=== PATIENT | female | born 1980 | race Caucasian/White ===

== ENCOUNTER 2020-12-31 15:49 | Inpatient (IN) | payer MEDICAID ==
[~2020-12-31 15:49] MED LIST: Sodium Chloride 0.9% 1,000 ML ONE
[2020-12-31] MEDS ORDERED: Acetaminophen 325 MG Tab PO ONE (16:06)
[2020-12-31] MEDS ORDERED: Sodium Chloride 0.9% 1,000 ML IV ONE (16:06)
--- NOTE | 2020-12-31 16:06 | EDM.PDOC ---
ED HPI GENERAL MEDICAL PROBLEM - General Chief Complaint: General Stated Complaint: Cough, Fatigue, SOB Time Seen by Provider: 12/31/20 15:53 Source of Information: Reports: Patient History Limitations: Reports: No Limitations - History of Present Illness INITIAL COMMENTS - FREE TEXT/NARRATIVE: Heather is a 40 year old female who presents per EMS with complaints of shortness of breath, cough, sinus congestion, sore throat, chest and back discomfort, body aches. Has been sick for a few days. Relates tried to be seen at a different facility but was turned away as only has [place] Medicaid. Has been driving for the last 2 hours and heading back to [place]. States were in [place] to "build bleachers". Were pulled over by the police for undisclosed reasons and advised them she was having all these symptoms. She admits she was likely exposed to covid with her roommates, has not had the vaccine. History of anxiety/depression, hypertension. Onset: Gradual Duration: Day(s):, Getting Worse Location: Reports: Head, Chest, Back, Generalized Quality: Reports: Ache Severity: Moderate Associated Symptoms: Reports: Chest Pain, Cough, Fever/Chills, Headaches, Loss of Appetite, Malaise, Nausea/Vomiting, Shortness of Breath, Weakness. Denies: Confusion back pain Pain Score (Numeric/FACES): 10 - Related Data Allergies Allergy/AdvReac Type Severity Reaction Status Date / Time No Known Allergies Allergy Verified 12/31/20 15:51 Home Meds: Home Meds Citalopram Hydrobromide [Celexa] 20 mg PO DAILY 12/31/20 [History] Metoprolol Tartrate 100 mg PO BID 12/31/20 [History] Pantoprazole Sodium [Protonix] 20 mg PO DAILY 12/31/20 [History] cloNIDine [Catapres] 0.3 mg PO DAILY 12/31/20 [History] lisinopriL [Lisinopril] 20 mg PO BID 12/31/20 [History] Past Medical History Cardiovascular History: Reports: Hypertension Gastrointestinal History: Reports: GERD Social & Family History - Family History Family Medical History: No Pertinent Family History - Tobacco Use Tobacco Use Status *Q: Current Every Day Tobacco User Years of Tobacco use: 10 Packs/Tins Daily: 0.5 - Caffeine Use Caffeine Use: Reports: None - Recreational Drug Use Recreational Drug Use: No ED ROS GENERAL - Review of Systems Review Of Systems: See Below Constitutional: Reports: Fever, Chills, Malaise, Weakness, Fatigue, Decreased Appetite HEENT: Reports: Ear Pain, Rhinitis, Sinus Problem, Throat Pain Respiratory: Reports: Shortness of Breath, Cough Cardiovascular: Reports: Chest Pain, Lightheadedness. Denies: Edema Endocrine: Reports: Fatigue GI/Abdominal: Reports: Decreased Appetite, Nausea, Vomiting. Denies: Abdominal Pain, Constipation, Diarrhea : Reports: Other (decreased frequency of voiding) Musculoskeletal: Reports: No Symptoms Skin: Reports: No Symptoms Neurological: Reports: Headache, Weakness ED EXAM, GENERAL - Physical Exam Exam: See Below Exam Limited By: No Limitations General Appearance: Alert, WD/WN, Mild Distress Ears: Normal External Exam, Normal TMs Nose: Normal Inspection, Normal Mucosa, Nasal Drainage Throat/Mouth: Other (mucous membranes dry, tongue dry, posterior pharynx is red) Head: Normocephalic Neck: Normal Inspection, Supple, Non-Tender Respiratory/Chest: Decreased Breath Sounds, Rhonchi Cardiovascular: Regular Rate, Rhythm GI/Abdominal: Normal Bowel Sounds, Soft, Non-Tender Extremities: Normal Inspection, No Pedal Edema Neurological: Alert, Oriented Skin Exam: Warm, Dry Course - Vital Signs Last Recorded V/S: Last Vital Signs Temp 102.7 F H 12/31/20 15:54 Pulse 89 12/31/20 15:54 Resp 18 12/31/20 15:54 BP 102/57 L 12/31/20 15:54 Pulse Ox 98 12/31/20 15:54 - Orders/Labs/Meds Orders: Active Orders 24 hr Category Date Time Status Abdomen Pelvis wo Cont [CT] Stat Exams 12/31/20 17:08 Taken Chest 2V [CR] Stat Exams 12/31/20 16:00 Taken Chest wo Cont [CT] Stat Exams 12/31/20 17:08 Taken CULTURE URINE [RM] Stat Lab 12/31/20 16:00 Received Labs: Laboratory Tests 12/31/20 12/31/20 12/31/20 Range/Units 16:00 16:00 16:00 WBC 19.7 H (4.0-11.0) 10^3/uL RBC 3.30 L (4.00-5.50) x10^6/uL Hgb 9.6 L (12.0-16.0) g/dL Hct 29.0 L (37.0-47.0) % MCV 87.9 (83.0-97.0) fL MCH 29.1 (27.0-32.0) pg MCHC 33.1 (32.0-36.0) g/dL RDW Coeff of Linda 13.0 (11.0-15.0) % Plt Count 289 (150-400) 10^3/uL Add Manual Diff Yes Neutrophils % (Manual) 83 (35-85) % Band Neutrophils % 10 H (0-5) % Lymphocytes % (Manual) 2 L (21-55) % Monocytes % (Manual) 4 (2-12) % Eosinophils % (Manual) 1 (0-5) % D-Dimer, Quantitative (0.00-0.50) Sodium (136-145) mEq/L Potassium (3.5-5.0) mEq/L Chloride (98-106) mEq/L Carbon Dioxide (21-32) mmol/L BUN (7-18) mg/dL Creatinine (0.6-1.0) mg/dL Est Cr Clr Drug Dosing Estimated GFR (MDRD) (>=60) mL/min Glucose (75-99) mg/dL Lactic Acid (0.4-2.0) mmol/L Calcium (8.4-10.1) mg/dL Magnesium (1.8-2.4) mg/dL Total Bilirubin (0.0-1.0) mg/dL AST (15-37) U/L ALT (12-78) U/L Alkaline Phosphatase (46-116) U/L Troponin I High Sens (<=51) pg/mL C-Reactive Protein (0.2-0.8) mg/dL NT-Pro-B Natriuret Pep (0-1000) pg/mL Total Protein (6.4-8.2) g/dL Albumin (3.4-5.0) g/dL Urine Color Dark yellow (YELLOW) Urine Appearance Slightly cloudy (CLEAR) Urine pH 5.5 (4.5-8.0) Ur Specific [place] >= 1.030 H (1.003-1.020) Urine Protein >=300 H (NEGATIVE) mg/dL Urine Glucose (UA) Negative (NEGATIVE) mg/dL Urine Ketones Negative (NEGATIVE) mg/dL Urine Occult Blood Moderate H (NEGATIVE) Urine Nitrite Negative (NEGATIVE) Urine Bilirubin Small H (NEGATIVE) Urine Urobilinogen 1.0 (0.2-1.0) EU/dL Ur Leukocyte Esterase Small H (NEGATIVE) Urine RBC 5-10 H (0-5) /HPF Urine WBC >100 H (0-5) /HPF Urine WBC Clumps Few H (NOT SEEN) /HPF Ur Epithelial Cells Few H (NOT SEEN) /HPF Urine Bacteria Moderate H (NOT SEEN) /HPF SARS CoV-2 RNA Rapid JAIMEE Negative (NEGATIVE) 12/31/20 12/31/20 12/31/20 Range/Units 16:00 16:00 16:20 WBC (4.0-11.0) 10^3/uL RBC (4.00-5.50) x10^6/uL Hgb (12.0-16.0) g/dL Hct (37.0-47.0) % MCV (83.0-97.0) fL MCH (27.0-32.0) pg MCHC (32.0-36.0) g/dL RDW Coeff of Linda (11.0-15.0) % Plt Count (150-400) 10^3/uL Add Manual Diff Neutrophils % (Manual) (35-85) % Band Neutrophils % (0-5) % Lymphocytes % (Manual) (21-55) % Monocytes % (Manual) (2-12) % Eosinophils % (Manual) (0-5) % D-Dimer, Quantitative 2.22 H (0.00-0.50) Sodium 130 L (136-145) mEq/L Potassium 3.9 (3.5-5.0) mEq/L Chloride 94 L (98-106) mEq/L Carbon Dioxide 27 (21-32) mmol/L BUN 21 H (7-18) mg/dL Creatinine 2.3 H (0.6-1.0) mg/dL Est Cr Clr Drug Dosing TNP Estimated GFR (MDRD) 23 L (>=60) mL/min Glucose 93 (75-99) mg/dL Lactic Acid 1.0 (0.4-2.0) mmol/L Calcium 8.2 L (8.4-10.1) mg/dL Magnesium 1.6 L (1.8-2.4) mg/dL Total Bilirubin 0.7 (0.0-1.0) mg/dL AST 10 L (15-37) U/L ALT 12 (12-78) U/L Alkaline Phosphatase 81 (46-116) U/L Troponin I High Sens 6.0 (<=51) pg/mL C-Reactive Protein 37.7 H (0.2-0.8) mg/dL NT-Pro-B Natriuret Pep 898 (0-1000) pg/mL Total Protein 7.1 (6.4-8.2) g/dL Albumin 3.0 L (3.4-5.0) g/dL Urine Color (YELLOW) Urine Appearance (CLEAR) Urine pH (4.5-8.0) Ur Specific [place] (1.003-1.020) Urine Protein (NEGATIVE) mg/dL Urine Glucose (UA) (NEGATIVE) mg/dL Urine Ketones (NEGATIVE) mg/dL Urine Occult Blood (NEGATIVE) Urine Nitrite (NEGATIVE) Urine Bilirubin (NEGATIVE) Urine Urobilinogen (0.2-1.0) EU/dL Ur Leukocyte Esterase (NEGATIVE) Urine RBC (0-5) /HPF Urine WBC (0-5) /HPF Urine WBC Clumps (NOT SEEN) /HPF Ur Epithelial Cells (NOT SEEN) /HPF Urine Bacteria (NOT SEEN) /HPF SARS CoV-2 RNA Rapid JAIMEE (NEGATIVE) Meds: Medications Discontinued Medications Generic Name Dose Route Start Last Admin Trade Name Freq PRN Reason Stop Dose Admin Acetaminophen 650 mg 12/31/20 16:06 12/31/20 16:08 Acetaminophen 325 Mg Tab PO 12/31/20 16:07 650 mg NOW ONE Administration Sodium Chloride Confirm 12/31/20 15:33 12/31/20 16:08 Normal Saline Administered 12/31/20 15:34 Not Given Dose 1,000 mls @ as directed .ROUTE .STK-MED ONE Sodium Chloride 1,000 mls @ 999 mls/hr 12/31/20 16:06 12/31/20 16:08 Normal Saline IV 12/31/20 17:06 999 mls/hr .BOLUS ONE Administration Iopamidol 100 ml 12/31/20 16:52 12/31/20 17:42 Iopamidol 755 Mg/Ml 100 Ml Bottle IVPUSH 12/31/20 16:53 Not Given ONETIME ONE - Re-Assessments/Exams Free Text/Narrative Re-Assessment/Exam: 12/31/20 17:47 Lab results all received, finally able to collect UA. WBC high, CRP high, crea tinine high. D-Dimer is high but unable to perform CTA. Scans of chest, abdomen and pelvis were done to find source of infection. UA is positive. IV fluids have been infusing, will continue. Blood cultures obtained. Arresting office also here with patient. Did find drug paraphernalia in her vehicle. Will admit to inpatient for UTI with sepsis. Departure - Departure Time of Disposition: 17:50 Disposition: Admitted As Inpatient 64 Condition: Fair Clinical Impression: UTI (urinary tract infection), Sepsis - Discharge Information *PRESCRIPTION DRUG MONITORING PROGRAM REVIEWED*: No *COPY OF PRESCRIPTION DRUG MONITORING REPORT IN PATIENT BENI: No Sepsis Event Note (ED) - Evaluation Sepsis Screening Result: No Definite Risk - Focused Exam Vital Signs: Vital Signs Temp Pulse Resp BP Pulse Ox 12/31/20 15:54 102.7 F H 89 18 102/57 L 98 - Problem List & Annotations (1) Sepsis SNOMED Code(s): 38773600 Code(s): A41.9 - SEPSIS, UNSPECIFIED ORGANISM Status: Acute Priority: High Current Visit: Yes Qualifiers: Severe sepsis acute organ dysfunction type: acute renal failure Acute renal failure type: with acute tubular necrosis (2) UTI (urinary tract infection) SNOMED Code(s): 42676299 Code(s): N39.0 - URINARY TRACT INFECTION, SITE NOT SPECIFIED Status: Acute Priority: High Current Visit: Yes Qualifiers: Urinary tract infection type: acute cystitis Hematuria presence: with hematuria Qualified Code(s): N30.01 - Acute cystitis with hematuria (3) Hypotension SNOMED Code(s): 42356937 Code(s): I95.9 - HYPOTENSION, UNSPECIFIED Status: Acute Priority: High Current Visit: Yes Qualifiers: Hypotension type: hypotension due to hypovolemia Qualified Code(s): I95.89 - Other hypotension; E86.1 - Hypovolemia (4) RANJEET (acute kidney injury) SNOMED Code(s): 25414653, 39158615 Code(s): N17.9 - ACUTE KIDNEY FAILURE, UNSPECIFIED Status: Acute Priority: High Current Visit: Yes - Problem List Review Problem List Initiated/Reviewed/Updated: Yes - My Orders Last 24 Hours: My Active Orders 12/31/20 16:00 Chest 2V [CR] Stat CULTURE URINE [RM] Stat 12/31/20 17:08 Abdomen Pelvis wo Cont [CT] Stat Chest wo Cont [CT] Stat - Assessment/Plan Admission H&P: Please use this note as an admission H&P Last 24 Hours: My Active Orders 12/31/20 16:00 Chest 2V [CR] Stat CULTURE URINE [RM] Stat 12/31/20 17:08 Abdomen Pelvis wo Cont [CT] Stat Chest wo Cont [CT] Stat Assessment:: 1. UTI 2. Sepsis 3. RANJEET 4. Hypotension Plan: Admit to inpatient. Continue IV fluids. IV antibiotics. Control temp. Watch temp and treat accordingly.
[2020-12-31 16:30] LABS: CHLORIDE,CL 94 mEq/L (98-106); SODIUM,NA 130 mEq/L (136-145)
[2020-12-31] MEDS ORDERED: Iopamidol 755 Mg/ML 100 ML Bottle IVPUSH ONE (16:52)
[2020-12-31 17:45] LABS: METHAMPHETAMINES,URINE POSITIVE (NEGATIVE)
[2020-12-31 17:46] LABS: AMPHETAMINES,URINE POSITIVE (NEGATIVE); BARBITURATES,URINE NEGATIVE (NEGATIVE); BENZODIAZEPINE,URINE NEGATIVE (NEGATIVE); MDMA (ECSTASY), URINE NEGATIVE (NEGATIVE); METHADONE,URINE NEGATIVE (NEGATIVE); OPIATES,URINE NEGATIVE (NEGATIVE); OXYCODONE,URINE NEGATIVE (NEGATIVE); PHENCYCLIDINE,URINE NEGATIVE (NEGATIVE); TCA,URINE POSITIVE (NEGATIVE)
[2020-12-31] MEDS ORDERED: cefTRIAXone 2 GM Vial IVPUSH ONE (17:55)
[2020-12-31] MEDS ORDERED: Ondansetron 4 MG/2 ML SDV IV PRN (18:11)
[2020-12-31] MEDS ORDERED: Ondansetron 4 MG Tab.DIS PO PRN (18:11)
[2020-12-31] MEDS ORDERED: Sodium Chloride 0.9% 1,000 ML IV SCH ×2 (18:11→20:00)
[2020-12-31] MEDS ORDERED: Temazepam 15 MG Cap PO PRN (18:11)
[2020-12-31] MEDS ORDERED: Acetaminophen 325 MG Tab PO PRN (18:11)
[2020-12-31] MEDS ORDERED: Ibuprofen 200 MG Tab PO PRN (18:11)
[2020-12-31] MEDS: Doxycycline 100 MG Tab PO SCH (19:56)
--- NOTE | 2020-12-31 20:08 | PCM.SN.2 ---
- Free Text/Narrative Note: Patient is resting comfortably. Now eating, drinking fluids well. Concerned with blood pressure as remains hypotensive despite one liter bolus. [facility] Dr[facility] [place]. [place] antibiotics, treatment plan appropriate. Suggested additional liter bolus. Advised nurses of such. Will continue with Rocephin and Doxycycline, IV fluids. Continue to monitor. Time Documentation
[2020-12-31] MEDS: Sodium Chloride 0.9% 1,000 ML IV SCH (21:30)
[2021-01-01] MEDS: LORazepam 2 MG/ML Syringe IVPUSH PRN ×2 (01:59→10:32)
[2021-01-01] MEDS: Sodium Chloride 0.9% 1,000 ML IV SCH (05:35)
[2021-01-01] MEDS: Doxycycline 100 MG Tab PO SCH (07:40)
[2021-01-01] MEDS ORDERED: Pantoprazole 40 MG Tab.CR PO SCH (08:00)
[2021-01-01] MEDS ORDERED: Citalopram 10 MG Tab PO SCH (08:00)
[2021-01-01] MEDS ORDERED: Levofloxacin/Dextrose 5%-Water 500 MG in Premix Bag 1 BAG IV ONE (09:17)
[2021-01-01] MEDS ORDERED: Enoxaparin 30 MG/0.3 ML Syringe SUBCUT SCH (12:00)
--- NOTE | 2021-01-01 14:28 | PCM.DCSUM1 ---
Discharge Summary - Hospital Course Free Text/Narrative:: Heather is a 40 year old female who presented to ER after was pulled over by the police and patient was on scene complaining of abdominal pain, body aches, chest congestion, headache, fatigue and fever. States had tried to be seen in [facility] but was turned away because she had [place] Medicaid. She admits to getting more ill. In ER, work did show elevated WBC at 19.7, CRP 37.7. D-Dimer was high but unable to do CTA due to elevated creatinine. Blood pressure low. Fever high. Positive UA. Admitted for UTI, probable sepsis with RANJEET and hypotension. IV fluids started. IV antibiotics started. Meds for fever control. Diagnosis: Stroke: No Modified [place] Scale: No Symptoms at All Modified [place] Scale Score: 0 - Discharge Data Discharge Date: 01/01/21 Discharge Disposition: Against Medical Advice 07 Condition: Fair - Referral to Home Health Primary Care Physician: PCP Not In Area - Discharge Diagnosis/Problem(s) (1) Sepsis SNOMED Code(s): 22403987 ICD Code: A41.9 - SEPSIS, UNSPECIFIED ORGANISM Status: Acute Priority: High Qualifiers: Severe sepsis acute organ dysfunction type: acute renal failure Acute renal failure type: with acute tubular necrosis (2) UTI (urinary tract infection) SNOMED Code(s): 46958540 ICD Code: N39.0 - URINARY TRACT INFECTION, SITE NOT SPECIFIED Status: Acute Priority: High Qualifiers: Urinary tract infection type: acute cystitis Hematuria presence: with hematuria Qualified Code(s): N30.01 - Acute cystitis with hematuria (3) Hypotension SNOMED Code(s): 56493173 ICD Code: I95.9 - HYPOTENSION, UNSPECIFIED Status: Acute Priority: High Qualifiers: Hypotension type: hypotension due to hypovolemia Qualified Code(s): I95.89 - Other hypotension; E86.1 - Hypovolemia (4) RANJEET (acute kidney injury) SNOMED Code(s): 75458993, 07652399 ICD Code: N17.9 - ACUTE KIDNEY FAILURE, UNSPECIFIED Status: Acute Priority: High - Patient Summary/Data Complications: none Hospital Course: Patient continued to have low blood pressure last evening so second liter of fluid bolus was started after consulting with Dr. Adams at [place]. CT scan did show peritonitis with concern for PID, did add doxycycline. She does admit to feeling some better this am, is concerned her boyfriend will leave town without her if she doesn't check out of the hospital. Advised that one of her blood cultures was also positive and that she needs further IV fluids and meds. Also feels she is withdrawing from her "suboxone" although does not have a prescription for this and obtains this illegally, getting Ativan for this. Told would not agree to discharging patient. signed out AMA after getting a dose of IV Levaquin. Did agree to get her a Rx of Levaquin. - Patient Instructions Diet: Usual Diet as Tolerated Activity: As Tolerated - Discharge Plan *PRESCRIPTION DRUG MONITORING PROGRAM REVIEWED*: No *COPY OF PRESCRIPTION DRUG MONITORING REPORT IN PATIENT BENI: No Home Medications: Home Meds Citalopram Hydrobromide [Celexa] 20 mg PO DAILY 12/31/20 [History] Metoprolol Tartrate 100 mg PO BID 12/31/20 [History] Pantoprazole Sodium [Protonix] 20 mg PO DAILY 12/31/20 [History] cloNIDine [Catapres] 0.3 mg PO DAILY 12/31/20 [History] lisinopriL [Lisinopril] 20 mg PO BID 12/31/20 [History] Forms: ED Department Discharge Referrals: PCP,Not In Area [Primary Care Provider] - - Discharge Summary/Plan Comment DC Time >30 min.: No Total # of Minutes for Discharge Time: 15 - General Info Date of Service: 01/01/21 Admission Dx/Problem (Free Text: UTI with sepsis RANJEET Hypotension Functional Status: Reports: Pain Controlled, Tolerating Diet, Ambulating - Review of Systems General: Reports: Fever, Weakness, Fatigue, Malaise HEENT: Reports: No Symptoms Pulmonary: Denies: Shortness of Breath, Cough Cardiovascular: Denies: Chest Pain, Edema, Lightheadedness Gastrointestinal: Reports: Abdominal Pain Genitourinary: Reports: Frequency Musculoskeletal: Reports: No Symptoms Skin: Reports: No Symptoms Neurological: Reports: No Symptoms - Patient Data Vitals - Most Recent: Last Vital Signs Temp 97.8 F 01/01/21 07:32 Pulse 75 01/01/21 07:32 Resp 18 01/01/21 07:32 BP 102/58 L 01/01/21 07:32 Pulse Ox 96 01/01/21 07:32 Weight - Most Recent: 125 lb I&O - Last 24 hours: Intake & Output 12/31/20 01/01/21 01/01/21 22:59 06:59 14:59 Intake Total 1720 Output Total 900 Balance 820 Lab Results - Last 24 hrs: Laboratory Results - last 24 hr 12/31/20 12/31/20 12/31/20 Range/Units 16:00 16:00 16:00 WBC 19.7 H (4.0-11.0) 10^3/uL RBC 3.30 L (4.00-5.50) x10^6/uL Hgb 9.6 L (12.0-16.0) g/dL Hct 29.0 L (37.0-47.0) % MCV 87.9 (83.0-97.0) fL MCH 29.1 (27.0-32.0) pg MCHC 33.1 (32.0-36.0) g/dL RDW Coeff of Linda 13.0 (11.0-15.0) % Plt Count 289 (150-400) 10^3/uL Immature Gran % (Auto) (0.0-4.9) % Neut % (Auto) (41-71) % Lymph % (Auto) (24-44) % Snyder % (Auto) (0-10) % Eos % (Auto) (0-6) % Baso % (Auto) (0-1) % Neut # (Auto) (1.80-8.00) x10^3/uL Lymph # (Auto) (0.60-5.00) 10^3/uL Snyder # (Auto) (0.00-1.50) 10^3/uL Eos # (Auto) (0.00-1.50) 10^3/uL Baso # (Auto) (0.00-0.50) 10^3/uL Immature Gran # (Auto) (0.00-0.49) 10^3/uL Add Manual Diff Yes Neutrophils % (Manual) 83 (35-85) % Band Neutrophils % 10 H (0-5) % Lymphocytes % (Manual) 2 L (21-55) % Monocytes % (Manual) 4 (2-12) % Eosinophils % (Manual) 1 (0-5) % D-Dimer, Quantitative (0.00-0.50) Sodium (136-145) mEq/L Potassium (3.5-5.0) mEq/L Chloride (98-106) mEq/L Carbon Dioxide (21-32) mmol/L BUN (7-18) mg/dL Creatinine (0.6-1.0) mg/dL Est Cr Clr Drug Dosing Estimated GFR (MDRD) (>=60) mL/min Glucose (75-99) mg/dL Lactic Acid (0.4-2.0) mmol/L Calcium (8.4-10.1) mg/dL Magnesium (1.8-2.4) mg/dL Total Bilirubin (0.0-1.0) mg/dL AST (15-37) U/L ALT (12-78) U/L Alkaline Phosphatase (46-116) U/L Troponin I High Sens (<=51) pg/mL C-Reactive Protein (0.2-0.8) mg/dL NT-Pro-B Natriuret Pep (0-1000) pg/mL Total Protein (6.4-8.2) g/dL Albumin (3.4-5.0) g/dL Urine Color Dark yellow (YELLOW) Urine Appearance Slightly cloudy (CLEAR) Urine pH 5.5 (4.5-8.0) Ur Specific [place] >= 1.030 H (1.003-1.020) Urine Protein >=300 H (NEGATIVE) mg/dL Urine Glucose (UA) Negative (NEGATIVE) mg/dL Urine Ketones Negative (NEGATIVE) mg/dL Urine Occult Blood Moderate H (NEGATIVE) Urine Nitrite Negative (NEGATIVE) Urine Bilirubin Small H (NEGATIVE) Urine Urobilinogen 1.0 (0.2-1.0) EU/dL Ur Leukocyte Esterase Small H (NEGATIVE) Urine RBC 5-10 H (0-5) /HPF Urine WBC >100 H (0-5) /HPF Urine WBC Clumps Few H (NOT SEEN) /HPF Ur Epithelial Cells Few H (NOT SEEN) /HPF Urine Bacteria Moderate H (NOT SEEN) /HPF Urine Opiates Screen (NEGATIVE) Ur Oxycodone Screen (NEGATIVE) Urine Methadone Screen (NEGATIVE) Ur Barbiturates Screen (NEGATIVE) U Tricyclic Antidepress (NEGATIVE) Ur Phencyclidine Scrn (NEGATIVE) Ur Amphetamine Screen (NEGATIVE) U Methamphetamines Scrn (NEGATIVE) Urine MDMA Screen (NEGATIVE) U Benzodiazepines Scrn (NEGATIVE) Urine Cocaine Screen (NEGATIVE) U Marijuana (THC) Screen (NEGATIVE) SARS CoV-2 RNA Rapid JAIMEE Negative (NEGATIVE) 12/31/20 12/31/20 12/31/20 Range/Units 16:00 16:00 16:20 WBC (4.0-11.0) 10^3/uL RBC (4.00-5.50) x10^6/uL Hgb (12.0-16.0) g/dL Hct (37.0-47.0) % MCV (83.0-97.0) fL MCH (27.0-32.0) pg MCHC (32.0-36.0) g/dL RDW Coeff of Linda (11.0-15.0) % Plt Count (150-400) 10^3/uL Immature Gran % (Auto) (0.0-4.9) % Neut % (Auto) (41-71) % Lymph % (Auto) (24-44) % Snyder % (Auto) (0-10) % Eos % (Auto) (0-6) % Baso % (Auto) (0-1) % Neut # (Auto) (1.80-8.00) x10^3/uL Lymph # (Auto) (0.60-5.00) 10^3/uL Snyder # (Auto) (0.00-1.50) 10^3/uL Eos # (Auto) (0.00-1.50) 10^3/uL Baso # (Auto) (0.00-0.50) 10^3/uL Immature Gran # (Auto) (0.00-0.49) 10^3/uL Add Manual Diff Neutrophils % (Manual) (35-85) % Band Neutrophils % (0-5) % Lymphocytes % (Manual) (21-55) % Monocytes % (Manual) (2-12) % Eosinophils % (Manual) (0-5) % D-Dimer, Quantitative 2.22 H (0.00-0.50) Sodium 130 L (136-145) mEq/L Potassium 3.9 (3.5-5.0) mEq/L Chloride 94 L (98-106) mEq/L Carbon Dioxide 27 (21-32) mmol/L BUN 21 H (7-18) mg/dL Creatinine 2.3 H (0.6-1.0) mg/dL Est Cr Clr Drug Dosing TNP Estimated GFR (MDRD) 23 L (>=60) mL/min Glucose 93 (75-99) mg/dL Lactic Acid 1.0 (0.4-2.0) mmol/L Calcium 8.2 L (8.4-10.1) mg/dL Magnesium 1.6 L (1.8-2.4) mg/dL Total Bilirubin 0.7 (0.0-1.0) mg/dL AST 10 L (15-37) U/L ALT 12 (12-78) U/L Alkaline Phosphatase 81 (46-116) U/L Troponin I High Sens 6.0 (<=51) pg/mL C-Reactive Protein 37.7 H (0.2-0.8) mg/dL NT-Pro-B Natriuret Pep 898 (0-1000) pg/mL Total Protein 7.1 (6.4-8.2) g/dL Albumin 3.0 L (3.4-5.0) g/dL Urine Color (YELLOW) Urine Appearance (CLEAR) Urine pH (4.5-8.0) Ur Specific [place] (1.003-1.020) Urine Protein (NEGATIVE) mg/dL Urine Glucose (UA) (NEGATIVE) mg/dL Urine Ketones (NEGATIVE) mg/dL Urine Occult Blood (NEGATIVE) Urine Nitrite (NEGATIVE) Urine Bilirubin (NEGATIVE) Urine Urobilinogen (0.2-1.0) EU/dL Ur Leukocyte Esterase (NEGATIVE) Urine RBC (0-5) /HPF Urine WBC (0-5) /HPF Urine WBC Clumps (NOT SEEN) /HPF Ur Epithelial Cells (NOT SEEN) /HPF Urine Bacteria (NOT SEEN) /HPF Urine Opiates Screen (NEGATIVE) Ur Oxycodone Screen (NEGATIVE) Urine Methadone Screen (NEGATIVE) Ur Barbiturates Screen (NEGATIVE) U Tricyclic Antidepress (NEGATIVE) Ur Phencyclidine Scrn (NEGATIVE) Ur Amphetamine Screen (NEGATIVE) U Methamphetamines Scrn (NEGATIVE) Urine MDMA Screen (NEGATIVE) U Benzodiazepines Scrn (NEGATIVE) Urine Cocaine Screen (NEGATIVE) U Marijuana (THC) Screen (NEGATIVE) SARS CoV-2 RNA Rapid JAIMEE (NEGATIVE) 12/31/20 01/01/21 01/01/21 Range/Units 17:35 06:55 06:55 WBC 15.9 H (4.0-11.0) 10^3/uL RBC 3.30 L (4.00-5.50) x10^6/uL Hgb 9.6 L (12.0-16.0) g/dL Hct 29.1 L (37.0-47.0) % MCV 88.2 (83.0-97.0) fL MCH 29.1 (27.0-32.0) pg MCHC 33.0 (32.0-36.0) g/dL RDW Coeff of Linda 13.2 (11.0-15.0) % Plt Count 262 (150-400) 10^3/uL Immature Gran % (Auto) 3.5 (0.0-4.9) % Neut % (Auto) 87.0 H (41-71) % Lymph % (Auto) 3.2 L (24-44) % Snyder % (Auto) 4.6 (0-10) % Eos % (Auto) 1.5 (0-6) % Baso % (Auto) 0.2 (0-1) % Neut # (Auto) 13.86 H (1.80-8.00) x10^3/uL Lymph # (Auto) 0.51 L (0.60-5.00) 10^3/uL Snyder # (Auto) 0.73 (0.00-1.50) 10^3/uL Eos # (Auto) 0.24 (0.00-1.50) 10^3/uL Baso # (Auto) 0.03 (0.00-0.50) 10^3/uL Immature Gran # (Auto) 0.56 H (0.00-0.49) 10^3/uL Add Manual Diff Neutrophils % (Manual) (35-85) % Band Neutrophils % (0-5) % Lymphocytes % (Manual) (21-55) % Monocytes % (Manual) (2-12) % Eosinophils % (Manual) (0-5) % D-Dimer, Quantitative (0.00-0.50) Sodium 136 (136-145) mEq/L Potassium 3.8 (3.5-5.0) mEq/L Chloride 102 (98-106) mEq/L Carbon Dioxide 24 (21-32) mmol/L BUN 26 H (7-18) mg/dL Creatinine 2.3 H (0.6-1.0) mg/dL Est Cr Clr Drug Dosing 26.36 Estimated GFR (MDRD) 23 L (>=60) mL/min Glucose 105 H (75-99) mg/dL Lactic Acid (0.4-2.0) mmol/L Calcium 7.5 L (8.4-10.1) mg/dL Magnesium (1.8-2.4) mg/dL Total Bilirubin (0.0-1.0) mg/dL AST (15-37) U/L ALT (12-78) U/L Alkaline Phosphatase (46-116) U/L Troponin I High Sens (<=51) pg/mL C-Reactive Protein 34.0 H (0.2-0.8) mg/dL NT-Pro-B Natriuret Pep (0-1000) pg/mL Total Protein (6.4-8.2) g/dL Albumin (3.4-5.0) g/dL Urine Color (YELLOW) Urine Appearance (CLEAR) Urine pH (4.5-8.0) Ur Specific [place] (1.003-1.020) Urine Protein (NEGATIVE) mg/dL Urine Glucose (UA) (NEGATIVE) mg/dL Urine Ketones (NEGATIVE) mg/dL Urine Occult Blood (NEGATIVE) Urine Nitrite (NEGATIVE) Urine Bilirubin (NEGATIVE) Urine Urobilinogen (0.2-1.0) EU/dL Ur Leukocyte Esterase (NEGATIVE) Urine RBC (0-5) /HPF Urine WBC (0-5) /HPF Urine WBC Clumps (NOT SEEN) /HPF Ur Epithelial Cells (NOT SEEN) /HPF Urine Bacteria (NOT SEEN) /HPF Urine Opiates Screen Negative (NEGATIVE) Ur Oxycodone Screen Negative (NEGATIVE) Urine Methadone Screen Negative (NEGATIVE) Ur Barbiturates Screen Negative (NEGATIVE) U Tricyclic Antidepress Positive H (NEGATIVE) Ur Phencyclidine Scrn Negative (NEGATIVE) Ur Amphetamine Screen Positive H (NEGATIVE) U Methamphetamines Scrn Positive H (NEGATIVE) Urine MDMA Screen Negative (NEGATIVE) U Benzodiazepines Scrn Negative (NEGATIVE) Urine Cocaine Screen Negative (NEGATIVE) U Marijuana (THC) Screen Positive H (NEGATIVE) SARS CoV-2 RNA Rapid JAIMEE (NEGATIVE) GUERA Results - Last 24 hrs: Microbiology 12/31/20 17:55 Anaerobic Blood Culture - Preliminary Blood - Venous - Lab Draw Gram Negative Rods 12/31/20 16:00 Urine Culture - Preliminary Urine, Voided Gram Negative Rods 12/31/20 17:50 Anaerobic Blood Culture - Final Blood - Venous Med Orders - Current: Current Medications Discontinued Medications Acetaminophen (Acetaminophen 325 Mg Tab) 650 mg PO NOW ONE Stop: 12/31/20 16:07 Last Admin: 12/31/20 16:08 Dose: 650 mg Documented by: Acetaminophen (Acetaminophen 325 Mg Tab) 650 mg PO Q4H PRN PRN Reason: Pain (Mild 1-3)/fever Last Admin: 12/31/20 19:56 Dose: 650 mg Documented by: Ceftriaxone Sodium (Ceftriaxone 2 Gm Vial) 2 gm IVPUSH ONETIME ONE Stop: 12/31/20 17:56 Last Admin: 12/31/20 18:10 Dose: 2 gm Documented by: Ceftriaxone Sodium (Ceftriaxone 1 Gm Vial) 1 gm IVPUSH Q24H [facility] Citalopram Hydrobromide (Citalopram 10 Mg Tab) 20 mg PO DAILY [facility] Last Admin: 01/01/21 07:39 Dose: 20 mg Documented by: Doxycycline Monohydrate (Doxycycline 100 Mg Tab) 100 mg PO Q12H [facility] Last Admin: 01/01/21 07:40 Dose: 100 mg Documented by: Enoxaparin Sodium (Enoxaparin 30 Mg/0.3 Ml Syringe) 30 mg SUBCUT Q24H [facility] Sodium Chloride (Normal Saline) Confirm Administered Dose 1,000 mls @ as directed .ROUTE .STK-MED ONE Stop: 12/31/20 15:34 Last Admin: 12/31/20 16:08 Dose: Not Given Documented by: Sodium Chloride (Normal Saline) 1,000 mls @ 999 mls/hr IV .BOLUS ONE Stop: 12/31/20 17:06 Last Admin: 12/31/20 16:08 Dose: 999 mls/hr Documented by: Sodium Chloride (Normal Saline) 1,000 mls @ 125 mls/hr IV ASDIRECTED [facility] Last Admin: 12/31/20 19:06 Dose: 125 mls/hr Documented by: Sodium Chloride (Normal Saline) 1,000 mls @ 500 mls/hr IV ASDIRECTED [facility] Last Admin: 12/31/20 20:00 Dose: 500 mls/hr Documented by: Sodium Chloride (Normal Saline) 1,000 mls @ 125 mls/hr IV ASDIRECTED [facility] Last Admin: 01/01/21 05:35 Dose: 125 mls/hr Documented by: Levofloxacin/Dextrose 500 mg/ (Premix) 100 mls @ 100 mls/hr IV ONETIME ONE Stop: 01/01/21 10:16 Last Admin: 01/01/21 09:30 Dose: 100 mls/hr Documented by: Ibuprofen (Ibuprofen 200 Mg Tab) 400 mg PO Q6H PRN PRN Reason: Pain (mild 1-3) Last Admin: 01/01/21 01:55 Dose: 400 mg Documented by: Iopamidol (Iopamidol 755 Mg/Ml 100 Ml Bottle) 100 ml IVPUSH ONETIME ONE Stop: 12/31/20 16:53 Last Admin: 12/31/20 17:42 Dose: Not Given Documented by: Lorazepam (Lorazepam 2 Mg/Ml Syringe) 1 mg IVPUSH Q4H PRN PRN Reason: Anxiety Last Admin: 01/01/21 10:32 Dose: 1 mg Documented by: Ondansetron HCl (Ondansetron 4 Mg Tab.Dis) 4 mg PO Q4H PRN PRN Reason: nausea, able to take PO Ondansetron HCl (Ondansetron 4 Mg/2 Ml Sdv) 4 mg IV Q4H PRN PRN Reason: Nausea/Vomiting Last Admin: 01/01/21 01:55 Dose: 4 mg Documented by: Pantoprazole Sodium (Pantoprazole 40 Mg Tab.Cr) 40 mg PO DAILY [facility] Last Admin: 01/01/21 07:58 Dose: 40 mg Documented by: Temazepam (Temazepam 15 Mg Cap) 15 mg PO BEDTIME PRN PRN Reason: Sleep - Exam General: Reports: Alert, Oriented HEENT: Reports: Mucous Membr. Moist/[place] Neck: Reports: Supple Lungs: Reports: Clear to Auscultation, Normal Respiratory Effort Cardiovascular: Reports: Regular Rate, Regular Rhythm GI/Abdominal Exam: Normal Bowel Sounds, Soft, Non-Tender Extremities: Normal Inspection, No Pedal Edema Skin: Reports: Warm, Dry Neurological: Reports: No New Focal Deficit
[2021-01-01] MEDS ORDERED: cefTRIAXone 1 GM Vial IVPUSH SCH (18:00)
== END 2021-01-01 11:23 | disposition left against medical advice (07) | DRG 871 ==
LOC: CC.ED 15:49 → CC.MS 17:15
PROVIDERS: ADMIT Physician Assistant Medical; ATTEND Family Medicine
DX: A41.9 Sepsis, unspecified organism (principal); N17.0 Acute kidney failure with tubular necrosis; K65.9 Peritonitis, unspecified; N30.01 Acute cystitis with hematuria; E86.1 Hypovolemia; I95.89 Other hypotension; K21.9 Gastro-esophageal reflux disease without esophagitis; I10 Essential (primary) hypertension; Z20.822 Contact with and (suspected) exposure to COVID-19; F17.200 Nicotine dependence, unspecified, uncomplicated; Z79.899 Other long term (current) drug therapy
CPT/HCPCS: 36415; 71046; 71250; 74176; 80048; 80053; 80305-QW; 81001; 83605; 83735; 83880; 84484; 85025; 85379; 86140; 87040; 87077; 87086; 87088; 87186; 93005; 99285-25; A9270-GY; J0696; J1956; J2060; J2405; J7030; U0002